=== PATIENT | male | born 1975 | race Two or more races ===

== ENCOUNTER 2025-06-11 09:45 | Emergency (ER) | payer MEDICAID, SELFPAY ==
[2025-06-11 10:01] VITALS: BP 150/92; PULSE 74; RESP 16; TEMP 37.1; O2SAT 99; BMI 32.5
--- NOTE | 2025-06-11 10:08 | XR_ITS ---
Examination: CT abdomen and pelvis without contrast. Coronal 3-D reconstructions. Sagittal 2-D reconstructions. Date and time of exam: June 11, 2024, 11:04 a.m. INDICATIONS: Right-sided flank pain with nausea beginning this morning CTDI: vol (mGy): 11.8 DLP: (mGycm): 740 Technique: Axial images of the abdomen have been obtained, 3 mm slice thickness Intravenous contrast material has not been administered. Low dose protocols were performed. One or more of the following dose reduction techniques were used; automated exposure control, adjustment of the mA and/or KV according to patient size, use of iterative reconstruction technique. Findings: No visualized liver or splenic lesion Splenomegaly AP dimension 13 cm, hepatomegaly 17 cm Absent gallbladder No common bile duct stones No pancreatic or adrenal mass Tiny 1 mm right renal calculi, no hydronephrosis or ureteral calculi Aorta normal size Normal appendix Colonic diverticulosis Mild thickening of the urinary bladder wall No prostatomegaly Intact osseous structures IMPRESSION: Hepatosplenomegaly No common bile duct stones Tiny 1 mm nonobstructing right renal calculi, no hydronephrosis or ureteral calculi Normal appendix Mild cystitis pattern
--- NOTE | 2025-06-11 10:20 | PD.EDRME ---
Rapid Medical Screening Exam RME Arrival date/time: 06/11/25 09:45 49-year-old male presents to the emergency department today for with right side abdominal pain patient reports history of cholecystectomy Chief Complaint: Abdominal Pain Time Seen by Provider: 06/11/25 10:08 Vital signs: Vital Signs Temperature 98.8 F 06/11/25 10:01 Pulse Rate 74 06/11/25 10:01 Respiratory Rate 16 06/11/25 10:01 Blood Pressure 150/92 H 06/11/25 10:01 Pulse Oximetry (%) 99 06/11/25 10:01 Oxygen Delivery Method Room Air 06/11/25 10:01 Vital signs reviewed by provider: Yes Exam: On exam well-appearing does not appear ill or toxic Clinical Impression: Lab work imaging obtained
[2025-06-11 10:27] LABS: Collection Type, Urine Clean Catch
[2025-06-11 10:47] LABS: Basophils # (Auto) 0.0 Thou/mm3 (0.0-0.2); Basophils % (Auto) 0 % (0-2.5); Eosinophils # (Auto) 0.1 Thou/mm3 (0.0-0.5); Eosinophils % (Auto) 1 % (0-10); Hematocrit 42.3 % (41.0-53.0); Hemoglobin 15.0 g/dL (13.5-16.0); Immature Granulocytes Auto 0.02 Thou/mm3 (0.00-0.00); Lymphocytes # (Auto) 0.9 Thou/mm3 (1.0-4.8); Lymphocytes % (Auto) 13 % (10-50); Mean Corpuscular HGB Conc 35.5 g/dl (31.0-37.0); Mean Corpuscular Hemoglobin 31.8 pg (25.0-35.0); Mean Corpuscular Volume 90 fL (80-100); Monocytes # (Auto) 0.5 Thou/mm3 (0.0-0.8); Monocytes % (Auto) 8 % (0-12); Neutrophils # (Auto) 5.6 Thou/mm3 (1.8-7.7); Neutrophils % (Auto) 78 % (37-80); Nucleated Red Blood Cell # 0.00 Thou/mm3 (0.00-0.00); Nucleated Red Blood Cell % 0 /100 WBC (0); Platelet Count 133 Thou/mm3 (140-440); RDW Standard Deviation 41.1 fL (35.1-43.9); Red Blood Count 4.71 Miln/mm3 (4.50-5.90); White Blood Count 7.2 Thou/mm3 (3.8-10.6)
[2025-06-11 10:47] LABS: Bacteria,Urine Rare; Bilirubin,Urine Negative (Negative); Blood,Urine Negative (Negative); Clarity,Urine Clear (Clear/Hazy); Color,Urine Yellow (Lt Yel-Yel); Culture Indicated,Urine Not Indicated; Glucose, Urine Negative (Negative); Ketones,Urine Trace (Negative); Leukocyte Esterase,Urine Negative (Negative); Nitrite,Urine Negative (Negative); PH,Urine 6.0 (5.0-7.0); Protein,Urine Trace (Neg - Trace); RBC,Urine 6 /hpf (0-3); Specific Gravity,Urine 1.026 (1.001-1.035); Squamous Epithelial Cell,Urine < 1 /hpf (0-5); Urobilinogen,Urine 2.0 mg/dL (0.0-1.0); WBC,Urine < 1 /hpf (0-5)
[2025-06-11 10:48] VITALS: PULSE 68
--- NOTE | 2025-06-11 10:51 | XR_ITS ---
EXAMINATION: AP chest single view TECHNIQUE: AP portable upright chest single view Date and time: June 11, 2025, 11:10 a.m. INDICATIONS: Coughing abdominal pain today FINDINGS: Normal heart size Lungs are clear. Mild osteopenia IMPRESSION: No active disease
--- NOTE | 2025-06-11 10:51 | EKG_ITS ---
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1975 Requested By: Enrique Condon Order Number: [id number] Reading MD: Enrique Condon Measurements Intervals [place] Rate: 68 P: 61 [place]: 180 QRS: -57 QRSD: 110 T: 38 QT: 392 QTc: 419 Interpretive Statements SINUS RHYTHM LOW QRS VOLTAGE IN EXTREMITY LEADS [QRS DEFLECTION < 0.5 mV IN LIMB LEADS] PATTERN CONSISTENT WITH PULMONARY DISEASE LEFT ANTERIOR FASCICULAR BLOCK [QRS AXIS <= -45, QR IN I, RS IN II] INFERIOR MYOCARDIAL INFARCTION , OF INDETERMINATE AGE [40+ ms Q WAVE AND/OR ST/T ABNORMALITY IN II/aVF] No previous ECG available for comparison /store/[email or web address]/[id number].pdf
[2025-06-11 11:00] VITALS: BP 135/81; PULSE 65; RESP 16; O2SAT 99
[2025-06-11 11:08] LABS: Alanine Aminotransferase 125 U/L (10-49); Albumin, Serum 4.4 gm/dL (3.5-5.0); Albumin/Globulin Ratio 1.3 (1.2-2.2); Alkaline Phosphatase 148 U/L (46-116); Anion Gap 7 (7-16); Aspartate Amino Transferase 268 U/L (0-34); BUN/Creatinine Ratio 11 Ratio (12-20); Bilirubin,Total 1.5 mg/dL (0.3-1.2); Blood Urea Nitrogen 12 mg/dL (9-23); Calcium 9.1 mg/dL (8.3-10.6); Calcium (Corrected) 9.1 mg/dL (8.5-10.1); Carbon Dioxide 28.2 mMol/L (20.0-31.0); Chloride 105 mMol/L (98-107); Creatinine (Component) 1.1 mg/dL (0.6-1.3); Estimated Creatinine Clearance 96.7 mL/min (>60); Globulin 3.3 gm/dL (2.3-3.5); Glucose 132 mg/dL (74-106); Lipase 42 U/L (12-53); Osmolality,Calculated 281 (275-295); Potassium 4.3 mMol/L (3.4-5.1); Sodium 140 mMol/L (136-145); Total Protein 7.7 gm/dL (5.7-8.2); eGFR > 60 See Note
[2025-06-11] MEDS: SODIUM CHLORIDE 0.9% 1000 ML 1,000 ML 999 ML IV (11:14)
[2025-06-11 12:00] VITALS: BP 129/79; PULSE 66; RESP 16; O2SAT 100
[2025-06-11 13:00] VITALS: BP 140/85; PULSE 68; RESP 16; O2SAT 97
--- NOTE | 2025-06-11 13:24 | EDNOTE_ITS ---
ED Abdominal Pain RME/HPI General Chief Complaint: Abdominal Pain Stated complaint: R ABD PAIN X 2 DAYS, DIARREAH Time seen by provider: 06/11/25 10:08 Arrival date/time: 06/11/25 09:45 Limitations: no limitations RME / HPI RME / HPI narrative: 06/11/25 09:45 49-year-old male presents to the emergency department today for with right side abdominal pain patient reports history of cholecystectomy DR. DELEON MAIN ED EVALUATION: 49 year old male with history of hypertension and hypothyroidism presents to the ED for evaluation of right-sided abdominal pain today. Described as aching cramping in sensation he rates 10/10 in severity. Accompanied by nonbloody diarrhea. Denies fevers, chills, sweats, chest pain, cough, shortness of breath, nausea, vomiting, or urinary symptoms. Denies any history of similar abdominal pain. Exam: On exam well-appearing does not appear ill or toxic Impression: Lab work imaging obtained Related Data Previous Rx's ?Medication ?Instructions ?Recorded diphenoxylate-atropine 2.5 1 tab PO Q6H PRN diarrhea # 10 tabs 06/11/25 mg-0.025 mg tablet (Lomotil) Allergies Allergy/AdvReac Type Severity Reaction Status Date / Time NKA* Allergy Uncoded 06/11/25 09:46 Review of Systems Review of Systems Systems Reviewed: All systems reviewed, normal except as documented Past Medical History Past Medical History CARDIAC: Positive Hypertension ENDOCRINE: Positive Hypothyroidism Social History SMOKING STATUS: Never smoker ED Exam General Limitations: Present no limitations General appearance: Present alert and in no apparent distress Head Head exam: Present atraumatic Eye Eye exam: Present normal appearance, PERRL and EOMI ENT ENT exam: Present normal exam, normal oropharynx and mucous membranes moist Neck Neck exam: Present normal inspection, full ROM and trachea midline Chest Chest inspection: Present normal inspection and symmetric chest wall rise Respiratory Respiratory exam: Present normal lung sounds bilaterally Cardiovascular Cardiovascular exam: Present regular rate, normal rhythm and normal heart sounds Abdominal Exam Abdominal exam: Present soft and normal bowel sounds Extremities Exam Extremities exam: Present normal inspection and full ROM Back Exam Back exam: Present normal inspection and full ROM Neurological Exam Neurological exam: Present alert, oriented X3 and CN II-XII intact Psychiatric Psychiatric exam: Present normal affect and normal mood Skin Skin exam: Present warm, dry, intact and normal color Course Quality Measures none Orders Category Date Time Status Engineering Technical Writer NOW Care 06/11/25 10:51 Completed Continuous Pulse Oximetry NOW Care 06/11/25 10:51 Completed EKG (ED ONLY) *Do not use* NOW Care 06/11/25 10:51 Completed Insert IV NOW Care 06/11/25 10:[address] abdomen pelvis wo con Stat Exams 06/11/25 10:08 Completed EKG (ED Only) Stat Exams 06/11/25 10:51 Draft XR chest 1V portable Stat Exams 06/11/25 10:51 Completed CBC Stat Lab 06/11/25 10:32 Completed Comprehensive Metabolic Panel Stat Lab 06/11/25 10:32 Completed Lipase Stat Lab 06/11/25 10:32 Completed UA, C/S IF [Urinalysis, C/S if Indicated] Stat Lab 06/11/25 10:20 Completed Urinalysis Stat Lab 06/11/25 10:51 Ordered Sodium Chloride 0.9% 1000 ml [Ns] 1,000 ml Med 06/11/25 10:50 Discontinued IV 999 mls/hr Vital Signs Vital signs: Vital Signs Temperature 98.8 F 06/11/25 10:01 Pulse Rate 74 06/11/25 10:01 Respiratory Rate 16 06/11/25 10:01 Blood Pressure 150/92 H 06/11/25 10:01 Pulse Oximetry (%) 99 06/11/25 10:01 Oxygen Delivery Method Room Air 06/11/25 10:01 Pulse ox is 99% on room air which is adequate. Abdominal Pain MDM MDM Narrative MDM Narrative:: Felisa Lopez am scribing for and in the presence of Dr. Deleon. Patient remains clinically stable throughout the emergency department visit. We reviewed all the results, analysis, and treatment plans. Patient is amenable to discharge. Strict return precautions were outlined. Patient data External records reviewed:: [facility] previous records Clinical information provided by:: patient Social determinants that could affect healthcare access:: none Patient has the following chronic illnesses:: hypertension and hypothyroidism How is presenting disease/condition affected by chronic disease/condition?: uneffected by Evaluation data The following diagnostics were reviewed and interpreted by me:: EKG tracing(s) (EKG @ 11:06am, interpreted by me, normal sinus rhythm, rate 68, no STEMI. ) Lab and/or radiology exams considered but not ordered:: none Interpretation Summary: Ordering Physician: Cathie CAVAZOS)Shyam NP Date of Service: 06/11/25 Procedure(s): CT abdomen pelvis [facility] Accession Number(s): [id number] cc: Cathie CAVAZOS)Shyam NP; Nathan Farrell MD~ Examination: CT abdomen and pelvis without contrast. Coronal 3-D reconstructions. Sagittal 2-D reconstructions. Date and time of exam: June 11, 2024, 11:04 a.m. INDICATIONS: Right-sided flank pain with nausea beginning this morning CTDI: vol (mGy): 11.8 DLP: (mGycm): 740 Technique: Axial images of the abdomen have been obtained, 3 mm slice thickness Intravenous contrast material has not been administered. Low dose protocols were performed. One or more of the following dose reduction techniques were used; automated exposure control, adjustment of the mA and/or KV according to patient size, use of iterative reconstruction technique. Findings: No visualized liver or splenic lesion Splenomegaly AP dimension 13 cm, hepatomegaly 17 cm Absent gallbladder No common bile duct stones No pancreatic or adrenal mass Tiny 1 mm right renal calculi, no hydronephrosis or ureteral calculi Aorta normal size Normal appendix Colonic diverticulosis Mild thickening of the urinary bladder wall No prostatomegaly Intact osseous structures IMPRESSION: Hepatosplenomegaly No common bile duct stones Tiny 1 mm nonobstructing right renal calculi, no hydronephrosis or ureteral calculi Normal appendix Mild cystitis pattern Dictated By: Nathan Farrell MD Signed By: <Electronically signed by Nathan Farrell MD in [place]> 06/11/25 1126 Ordering Physician: Enrique Deleon MD Date of Service: 06/11/25 Procedure(s): XR chest 1V portable Accession Number(s): [id number] cc: Enrique Deleon MD; Nathan Farrell MD~ EXAMINATION: AP chest single view TECHNIQUE: AP portable upright chest single view Date and time: June 11, 2025, 11:10 a.m. INDICATIONS: Coughing abdominal pain today FINDINGS: Normal heart size Lungs are clear. Mild osteopenia IMPRESSION: No active disease Dictated By: Nathan Farrell MD Signed By: <Electronically signed by Nathan Farrell MD in [place]> 06/11/25 1127 Medications / Prescriptions Medications or Prescriptions considered but not ordered:: None Medication administrations:: Medication Administration History Discontinued Medications Sodium Chloride (Ns) 1,000 mls @ 999 mls/hr IV .Q1H1M ONE Stop: 06/11/25 11:50 Last Infusion: 06/11/25 12:29 Dose: Infused Documented By: Admin: 06/11/25 11:14 Dose: 999 mls/hr Documented By: DO See above Consultations Consultation(s) initiated? (list below): No Diagnosis Differential diagnosis abdominal pain: abdominal pain, constipation, diverticulitis, gastroenteritis and pancreatitis Most likely diagnosis given after review of the tests above:: Gastroenteritis Elevated LFTs Admission Indicated Admission indicated?: not indicated Admission Request Was there a request for admission?: No Disposition Plan Disposition Plan: Discharge Discharge Attestation Discharge Attestation: The patient and all family members were given an opportunity to ask questions and understood the discharge instructions. Discharge instructions specifically effects, indications for sooner follow up or return to the emergency department, and the expected course of current diagnosis. Patient condition: Stable Discharge Plan Plan Patient Disposition: HOME (Self Care) Patient condition on transfer: Stable Prescriptions/Referrals Prescriptions/Med Rec: New diphenoxylate-atropine [Lomotil] 2.5-0.025 mg tablet 1 tab PO Q6H MDD 4 PRN (Reason: diarrhea) Qty: 10 0RF Referrals: Val Neff FNP [Primary Care Provider] - In 1 week Problem List Clinical Impression: Gastroenteritis, Elevated LFTs Patient/Caregiver Discharge Instructions Discharge Activity: activity as tolerated Education Materials: ED Gastroenteritis, Noninfectious Additional Instructions: Please drink plenty of fluids. Follow-up with your primary care doctor as your liver function tests were elevated for further evaluation Print Language: Tuvaluan Stand Alone Forms: Karen Award Info., Patient Portal Info Letter
[2025-06-11 13:47] VITALS: BP 135/87; PULSE 73; RESP 18; TEMP 36.7; O2SAT 96
== END 2025-06-11 13:48 | disposition home or self-care (01) ==
PROVIDERS: Nurse Practitioner Primary Care; Emergency Provider Family Medicine; PCP Nurse Practitioner Family
DX: K52.9 Noninfective gastroenteritis and colitis, unspecified (principal); N20.0 Calculus of kidney; R16.2 Hepatomegaly with splenomegaly, not elsewhere classified; R79.89 Other specified abnormal findings of blood chemistry; Z90.49 Acquired absence of other specified parts of digestive tract; I10 Essential (primary) hypertension; E03.9 Hypothyroidism, unspecified
CPT/HCPCS: 36415; 71045; 74176; 80053; 81001; 83690; 85025; 93005; 96360; 99284; J7030